=== PATIENT | male | born 1990 | race Caucasian/White ===

== ENCOUNTER 2023-07-17 18:05 | Emergency (ER) | payer BC, SELFPAY ==
[2023-07-17 18:10] VITALS: BP 124/78; PULSE 102; RESP 20; TEMP 36.5; O2SAT 98; BMI 21.6
--- NOTE | 2023-07-17 18:27 | CRLHL7_ITS ---
For Patients: As a result of the Century Cures Act, medical imaging exams and procedure reports are released immediately into your electronic medical record. You may view this report before your referring provider. If you have questions, please contact your health care provider. Indication: Head trauma, altered mental status Technique: Volumetric multidetector CT images of the head were obtained without the administration of low osmolar intravenous contrast. Comparison: None available Findings: There is no intra-axial or extra-axial fluid collection. There is no mass effect or midline shift. The ventricles and sulci are normal in size and position for age. The brain parenchyma is grossly preserved in attenuation and bates-white differentiation. The orbits and their contents are grossly within normal limits. There is a small frontal scalp hematoma. Is grossly the bony calvarium intact. There is minimal mucosal thickening within the right maxillary sinus. Fluid is seen within the right mastoid air cells consistent with likely sequela of prior otomastoiditis. Impression: Small frontal scalp hematoma. No evidence of acute intracranial abnormality. Please note that all CT scans at this facility use dose modulation, iterative reconstruction, and/or weight-based dosing when appropriate to reduce radiation dose to as low as reasonably achievable. Dictated by Arnaldo Quispe MD @ 07/17/2023 7:08:38 PM (Electronically Signed)
--- OUTSIDE RECORDS SUMMARY | 2023-07-17 18:49 | XMS_ITS | Clinical Summary ---
Author Organization [facility] Address [address] [place] [address] Phone Care Team Providers Care Malt House Supervisor Name Role Phone Izabella Valencia APRN, SECURITY VEHICLE PATROL OFFICER Unavailable Marylu Zuleta DO Primary Care Provider Source Comments [employer] is fully rolled out on [employer]. Last update 07/26/08.[employer] Allergies No known active allergies Medications * Be aware that medications may not be up to date as of this document. Always verify current medications with patient. Medication Sig Dispensed Refills Start Date End Date Status bictegravir-emtricitab -tenofovir ALAFENAMIDE (BIKTARVY) 50-200-25 mg oral tablet Take 1 tablet by mouth daily. 30 tablet 5 11/02/2022 Active Active Problems Problem Noted Date Diagnosed Date Syphilis 08/18/2019 HIV disease ([facility]) 08/13/2019 Overview: [facility] Diagnosed 08/09/19 [facility] RPR 1:32. CD4= 18, HIV level= 418,000-immediate ART start. 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 Overview: Sober and in treatment since April 2019 Resolved Problems Problem Noted Date Diagnosed Date Resolved Date HIV positive ([facility]) 08/09/201903/12 Gonorrhea 08/09/2019 03/12/2022 Chlamydia 08/09/2019 09/24/2019 Immunizations Name Administration Dates Next Due Diphtheria and Tetanus Toxoid - Adult (Grifols T d) 03/02/2022,10/22/2003 Meningococcal Conjugate Vaccine 10/20/2006 Meningococcal Group B Recomb vaccine (BEXSERO) 0 10/20/2006 Tetanus Toxoid, Reduced Diph theroid Toxoid Acellular Pertussis 05/06/2012,10/22/2003 Family History Medical History Relation Name Comments Diabetes Father Hypertension Mother Relation Name Status Comments Father Mother Social History Tobacco Use Types Packs/Day Years Used Date Smoking Tobacco: Former Smokeless Tobacco: Never Tobacco Cessation:Counseling Given: Not Answered Alcohol Use Standard Drinks/Week Comments Not Currently 0 (1 standard drink = 0.6 oz pur e alcohol) Sex and Gender Information Value Date Recorded Sex Assigned at Male 08/09/2019 5:45 PM CDT Gender Identity Male 08/09/2019 5:45 PM CDT Sexual Orientation Bisexual 09/20/2022 9: 28 AM CDT Sexual Orientation Burk 09/20/2022 9: 28 AM CDT Last Filed Vital Signs Vital Sign Reading Time Taken Comments Blood Pressure 131/85 09/20/2022 9:51 PM CDT Pulse 94 09/20/2022 9:51 PM CDT Temperature 37 ??C (98.6 ??F) 09/20/2022 9:51 PM CDT Respiratory Rate 20 09/20/2022 9:51 PM CDT Oxygen Saturation 97% 09/20/2022 9:51 PM CDT Inhaled Oxygen Concentration - - Weight 89.7 kg (197 lb 11.2 oz) 03/12/2022 1:25 PM SURVEILLANCE TECHNICIAN Height 187.3 cm (6' 1.75) 03/12/2022 1:25 PM CS T Body Mass Index 25.56 03/12/2022 1:25 PM SURVEILLANCE TECHNICIAN Plan of Treatment Health Maintenance Due Date Last Done Comments Dental Oral Exam 1991 Dental Prophylaxis 1991 Dental X-Ray: Bitewings 1991 COVID-19 Vaccine (#1) 08/24/1996 Imm: Pneumonia Peds or At-Risk less than 65 years (1 of 2 - PCV) 08/24/1997 Periodontal Maintenance 08/24/2005 PREVENTATIVE VISIT 08/24/2009 Imm: HepB (1 of 3 - 19+ 3-dose series) 08/24/2010 INFLUENZA VACCINE 09/21/2022 HEALTH MAINTENANCE PROTOCOL 03/04/2024 03/04/2023 TD/TDAP ADULTS 03/02/2032 03/02/2022, 04/21, 10/22/2003, Additional history exists HIV Screening Completed 09/23/2022, 02/22, 03/12/2022, Additional history exists HIB Aged Out No longer eligi ble based on patient's age to complete this topic HPV Aged Out No longer eligi ble based on patient's age to complete this topic RSV Infant Immunoglobulin Aged Out No longer eligible based on patient's age to complete this topic Procedures Procedure Name Priority Date/Time Associated Diagnosis Comments HIV 1 AND HIV 2 SCREEN Routine 08/09/2019 Screening for HIV (human immunodeficiency virus) from Last 3 Months or Most Recently Relevant to Health Maintenance Results * (ABNORMAL) HIV 1 AND HIV 2 SCREEN (08/09/2019) HIV1&2 Reactive(A ) Nonreactive [facility] Capillary blood specimen (specimen) 08/09/2019 Emily Davison APRN, [facility] Performing Organization Address City/State/[facility] Co de Phone Number [facility] [address] [place] [address] from Last 3 Months or Most Recently Relevant to Health Maintenance Care Teams Malt House Supervisor Relationship Specialty Start Date End Date Izabella Valencia APRN, SECURITY VEHICLE PATROL OFFICER [address] [place] [address] PCP - Medical Specialty Infectious Diseases 03/12/22 Marylu [place] [address] PCP - General Family Medicine 03/12/22
--- OUTSIDE RECORDS SUMMARY | 2023-07-17 18:49 | XMS_ITS | Referral Summary ---
Author Organization [facility] [employer] [facility] Address [address] [place] [address] Phone Care Team Providers Care Project Product Manager Name Role Phone Izabella Valencia APRN, COMPENSATOR WORKER Unavailable Marylu Zuleta DO Primary Care Provider Source Comments [employer] is fully rolled out on [employer]. Last update 07/26/08.[employer] Allergies No known active allergies Medications * [...] Date Diagnosed Date Syphilis 08/18/2019 HIV disease ([facility]) 08/13/2019 Overview: [facility] Diagnosed 08/09/19 [facility] RPR 1:32. CD4= 18, HIV level= 418,000-immediate ART start. 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[facility]) 02/15/2019 Overview: Sober and in treatment since April 2019 Resolved Problems Problem Noted Date Diagnosed Date Resolved Date HIV positive ([facility]) 08/09/201903/12 Gonorrhea 08/09/2019 03/12/2022 Chlamydia 08/09/2019 09/24/2019 Immunizations Name Administration Dates Next Due Diphtheria and Tetanus Toxoid - Adult (Grifols T d) 03/02/2022,10/22/2003 Meningococcal Conjugate Vaccine 10/20/2006 Meningococcal Group B Recomb vaccine (BEXSERO) 0 10/20/2006 Tetanus Toxoid, Reduced Diph theroid Toxoid Acellular Pertussis 05/06/2012,10/22/2003 Social History Tobacco Use Types Packs/Day Years [...] (197 lb 11.2 oz) 03/12/2022 1:25 PM DOUBLER OPERATOR Height 187.3 cm (6' 1.75) 03/12/2022 1:25 PM CS T Body Mass Index 25.56 03/12/2022 1:25 PM DOUBLER OPERATOR Plan of Treatment Not on file Procedures Procedure Name Priority Date/Time Associated Diagnosis Comments HIV 1 AND HIV 2 SCREEN Routine 08/09/2019 Screening for HIV (human immunodeficiency virus) from Last 3 Months or Most Recently Relevant to Health Maintenance Results * (ABNORMAL) HIV 1 AND HIV 2 SCREEN (08/09/2019) HIV1&2 Reactive(A ) Nonreactive [facility] Capillary blood specimen (specimen) 08/09/2019 Emily Miguelangel Davison APRN, CNP [facility]ATORY [facility] [address] [place] [address] from Last 3 Months or Most Recently Relevant to Health Maintenance Care Teams Project Product Manager Relationship Specialty Start Date End Date Izabella Valencia APRN, CNP [address] [place] [address] PCP - Medical Specialty Infectious Diseases 03/12/22 Marylu Zuleta [place] [place] [address] PCP - General Family Medicine 03/12/22
--- OUTSIDE RECORDS SUMMARY | 2023-07-17 18:50 | XMS_ITS | Clinical Summary ---
Author Organization [employer] [facility] Address [place], [place] [address] Care Team Providers Care Tack Welder Name Role Phone Marylu Zuleta DO Primary Care Provider [phone] Allergies No known active allergies Medications Medication Sig Dispensed Refills Start Date End Date Status bictegravir-emtricitab ine-tenofovir ala (Biktarvy) Take 1 Tablet by mouth once daily. 09/23/2022 Active sildenafil citrate (Viagra) 50 mg tabletIndications:Erec tile dysfunction, unspecified erectile dysfunction type Take 30min to 4 hours before sexual activity. Max 100mg/24hr 30 Tablet 1 11/09/2022 Active Active Problems Problem Noted Date Diagnosed Date HIV infection 03/02/2022 Immunizations Name Administration Dates Next Due Meningococcal B 10/20/2006 Meningococcal Vaccine (Menactra) 10/20/2006 Td (Age >=7 Years) 03/02/2022,05/06/2012 Tdap 10/22/2003 Tdap, Unspecified 05/06/2012 Family History Medical History Relation Name Comments Mental illness Brother 1 Other Brother 1 Ureteral recons truction Mental illness Brother 2 Diabetes Father Cancer Maternal Grandfather Bone Hyperlipidemia Mother Diabetes Paternal Grandfather Diabetes Paternal Grandmother Relation Name Status Comments Brother 1 Brother 2 Alive Father Maternal Grandfather Mother Paternal Grandfather Paternal Grandmother Social History Tobacco Use Types Packs/Day Years Used Date Smoking Tobacco: Former Cigarettes Q uit: 05/06/2012 Passive Smoke Exposure: Past Smokeless Tobacco: Never Tobacco Cessation:Counseling Given: Not Answered Alcohol Use Standard Drinks/Week Comments Not Currently 0 (1 standard drink = 0.6 oz pur e alcohol) Social Connections Answer Date Recorded Frequency of Communication with Friends and Fami ly Not on file 05/23/2023 Alcohol Use Answer Date Recorded How often do you have a drink containing alcohol ? 1 03/02/2022 How many drinks containing a lcohol do you have on a typical day when you are drinking? 0 03/02/2022 How often do you have five or more drinks on one occasion? 0 03/02/2022 Financial Resource Strain Answer Date R ecorded Difficulty of Paying Living Expenses 3 04/27/2022 Difficulty of Paying Living Expenses Not on file 04/27/2022 Food Insecurity Answer Date Recorded Worried About Running Out of Food in the Last Ye ar 1 04/27/2022 Transportation Needs Answer Date Record ed Lack of Transportation (Medical) 1 04/27/2022 Housing Stability Answer Date Recorded Unable to Pay for Housing in the Last Year 1 04/27/2022 Sex and Gender Information Value Date Recorded Sex Assigned at Not on file Gender Identity Not on file Sexual Orientation Not on file Obstetrics History Last Filed Vital Signs Vital Sign Reading Time Taken Comments Blood Pressure 125/57 09/28/2022 1:41 PM CDT Pulse 72 09/28/2022 1:41 PM CDT Temperature 36.8 ??C (98.2 ??F) 09/28/2022 1:41 PM CD T Respiratory Rate 18 09/28/2022 1:41 PM CDT Oxygen Saturation 100% 09/28/2022 1:41 PM CDT Inhaled Oxygen Concentration - - Weight 88 kg (194 lb) 09/28/2022 1:41 PM CDT Height 183.6 cm (6' 0.28) 03/02/2022 9:06 AM CS T Body Mass Index 26.11 03/02/2022 9:06 AM FINANCIAL COMPLIANCE MANAGER Plan of Treatment Health Maintenance Due Date Last Done Comments COVID-19 vaccine series (#1) 08/24/1996 Pneumococcal series for age 6-64 (1 of 2 - PCV) 08/24/1997 Hepatitis C screening for ag e 18-79 08/24/2009 Depression screening for age 12+ 05/06/2016 05/07/19 16 BMI (ht and wt on same day) for age 18+ 03/02/2023 03/02/2022, 05/07/2015 Influenza for age 9-49 10/23/2023 Tetanus booster 03/02/2032 03/02/2022, 04/21, 05/06/2012, Additional history exists Tdap Completed 05/06/2012, 10/22/2003 HIV for age 15-65 Completed 11/04/2022, (Verified in Care Everywhere or Patient Record) Procedures Procedure Name Priority Date/Time Associated Diagnosis Comments HIV-1 RNA QUANT Routine 11/04/2022 3:35 PM CDT Human immunodeficiency virus (HIV) disease (HC) from Last 3 Months or Most Recently Relevant to Health Maintenance Results * HIV-1 RNA QUANT (11/04/2022 3:35 PM CDT) HIV-1 RNA QUANT HIV-1 RNA not detected HIV-1 RNA not detected copies/mL 11/08/2022 3:28 PM CDT [facility] Blood BLOOD SPECIMEN / Unknown Venipuncture / Unknown 11/04/2022 3:35 PM CDT 11/04/2022 3:35 PM CDT Narrative [facility] - 11/08/2022 3:28 PM CDT Method: Silvestre HIV-1 Test Marylu Zuleta DO SEND [facility] [address] [place] [address], from Last 3 Months or Most Recently Relevant to Health Maintenance Additional Health Concerns Infection Onset Date Last Indicated MRSA 09/28/2022 09/28/2022 Care Teams Tack Welder Relationship Specialty Start Date End Date Marylu Zuleta DO [address] [place] [address] PCP - General Family Practice 05/14/22
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
== END 2023-07-17 19:23 ==
PROVIDERS: Emergency Provider Emergency Medicine
DX: S00.83XA Contusion of other part of head, initial encounter (principal); W22.09XA Striking against other stationary object, initial encounter
CPT/HCPCS: 70450; 99283; 99284

== ENCOUNTER 2023-07-17 19:53 | Outpatient (CLI) | payer BC, SELFPAY ==
--- OUTSIDE RECORDS SUMMARY | 2023-08-03 00:48 | XMS_ITS | Clinical Summary ---
Author Organization [facility] [employer] Address [address] [place] [address] Phone Care Team Providers Care Bookkeeping Clerks Supervisor Name Role Phone Izabella Valencia APRN, DOSIER OPERATOR Unavailable Marylu Zuleta DO Primary Care Provider Source Comments [employer] is fully rolled out on [employer]. Last update 07/26/08.[employer] Allergies No known active allergies Medications * [...] Date Diagnosed Date Syphilis 08/18/2019 HIV disease ([facility]) 08/13/2019 Overview: [facility] Diagnosed 08/09/19 [facility] RPR 1:32. CD4= 18, HIV level= 418,000-immediate ART start. 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[facility]) 02/15/2019 Overview: Sober and in treatment since April 2019 Resolved Problems Problem Noted Date Diagnosed Date Resolved Date HIV positive ([facility]) 08/09/201903/12 Gonorrhea 08/09/2019 03/12/2022 Chlamydia 08/09/2019 09/24/2019 [...] (197 lb 11.2 oz) 03/12/2022 1:25 PM HOSTED SERVICES ANALYST Height 187.3 cm (6' 1.75) 03/12/2022 1:25 PM CS T Body Mass Index 25.56 03/12/2022 1:25 PM HOSTED SERVICES ANALYST Plan of Treatment Health Maintenance Due Date [...] 2 SCREEN (08/09/2019) HIV1&2 Reactive(A ) Nonreactive [facility] Capillary blood specimen (specimen) 08/09/2019 Emily Davison APRN, [facility] Performing Organization Address City/State/[facility] Co de Phone Number [facility] [address] [place] [address] from Last 3 Months or Most Recently Relevant to Health Maintenance Care Teams Bookkeeping Clerks Supervisor Relationship Specialty Start Date End Date Izabella Valencia APRN, DOSIER OPERATOR [address] [place] [address] PCP - Medical Specialty Infectious Diseases 03/12/22 Marylu [place]ule[place] [address] PCP - General Family Medicine 03/12/22
--- OUTSIDE RECORDS SUMMARY | 2023-08-03 00:48 | XMS_ITS | Clinical Summary ---
Author Organization [facility] Address [place], [place] [address] Care Team Providers Care Security Incident Response Specialist Name Role Phone Marylu Zuleta DO Primary Care Provider [phone] Allergies No known active allergies Medications Medication [...] Noted Date Diagnosed Date HIV infection 03/02/2022 Encounters Date Type Department Care Team Description 08/02/2023 Refill [facility] [address] [place] [address] Marylu Zuleta DO Refill Request (sildenafil citrate (Viagra) 50 mg tablet) from Last 3 Months Immunizations Name Administration Dates Next Due Meningococcal [...] Body Mass Index 26.11 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
--- OUTSIDE RECORDS SUMMARY | 2023-08-03 00:48 | XMS_ITS | Referral Summary ---
Author Organization [facility] [employer] Address [address] [place] [address] Phone Care Team Providers Care Twist Packer Name Role Phone Izabella Valencia APRN, SUPERVISOR DENTAL LABORATORY Unavailable Marylu Zuleta DO Primary Care Provider Source Comments [employer] is fully rolled out on [email or web address]. Last update 07/26/08.[employer] Allergies No known active allergies Medications * [...] Date Diagnosed Date Syphilis 08/18/2019 HIV disease ([facility]) 08/13/2019 Overview: [facility] Diagnosed 08/09/19 [facility] RPR 1:32. CD4= 18, HIV level= 418,000-immediate ART start. 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
== END 2023-07-17 19:54 | disposition home or self-care (01) ==
LOC: AMB 08-03 00:44
PROVIDERS: Visit Provider Family Medicine
DX: R45.88 Nonsuicidal self-harm (principal)